=== PATIENT | female | born 1995 | race Caucasian/White ===

== ENCOUNTER 2019-05-29 18:25 | Emergency (ER) | payer BC ==
[2019-05-29] MEDS ORDERED: ACT CHARCOAL/SORB 50 GM/240ML ONE (19:16)
[2019-05-29] MEDS ORDERED: NA CHLORIDE 0.9% 1,000 ML ONE (19:16)
[2019-05-29 19:42] LABS: Absolute Lymphocytes (CBC) 2.3 K/uL (0.7-4.9); Basophils % 0.8 % (0-1.3); Hematocrit 39.6 % (36.0-45.0); Lymphocytes % 31.9 % (15.3-44.8); MPV 9.3 fL (7.6-11.3); RBC Red Blood Cell Count 4.27 M/uL (3.86-4.86)
[2019-05-29 19:48] LABS: Protime INR 1.04
[2019-05-29 19:59] LABS: ALT/SGPT 22 U/L (12-78); AST/SGOT 16 U/L (15-37); Albumin 4.4 g/dL (3.4-5.0); Alkaline Phosphatase 59 U/L (45-117); BUN Blood Urea Nitrogen 12 mg/dL (7-18); Bicarbonate 27 mmol/L (21-32); Bilirubin Direct 0.1 mg/dL (0-0.2); Bilirubin Total 0.4 mg/dL (0.2-1.0); Glucose Level 100 mg/dL (74-106); Potassium 3.6 mmol/L (3.5-5.1); Protein, Total 8.1 g/dL (6.4-8.2); Sodium Level 141 mmol/L (136-145)
[2019-05-29] MEDS ORDERED: ONDANSETRON 4 MG/2 ML VIAL ONE (20:25)
[2019-05-29 20:45] LABS: Urine Blood TRACE (NEG); Urine Glucose NEGATIVE (NEG); Urine Protein NEGATIVE (NEG); Urine Specific Gravity 1.015 (1.005-1.030)
[2019-05-29 20:49] LABS: Barbiturates NEGATIVE (NEGATIVE); Benzodiazepines NEGATIVE (NEGATIVE); Cocaine NEGATIVE (NEGATIVE); METHAMPHETAM NEGATIVE (NEGATIVE); Methadone NEGATIVE (NEGATIVE); Opiates NEGATIVE (NEGATIVE); Phencyclidine NEGATIVE (NEGATIVE); THC Cannibis NEGATIVE (NEGATIVE)
--- NOTE | 2019-05-30 04:45 | EDPHYS ---
Physician Documentation [facility] Name: Akua Richard Age: 24 yrs Sex: Female : 1995 Arrival Date: 05/29/2019 Time: 18:37 Bed 6 Private MD: ED Physician Austin Sharma HPI: 05/29 19:06 This 24 yrs old Female presents to ER via EMS with complaints of Suicidal pm1 Ideation. 19:06 The patient presents to the emergency department with a history of a suicide gesture, pm1 where the patient took pills/medications, 6-8 pills of Nyquil. Onset: The symptoms/episode began/occurred ingestion of medications 30-60 minutes prior to arrival. Past psychiatric history: Prior diagnosis: no previous psychiatric diagnosis known, Psychiatric medications include: none, the patient has not had a prior suicide gesture, the patient does not have a previous inpatient psychiatric history. Associated signs and symptoms: Pertinent positives; suicide ideation, Pertinent negatives: delusions, fever, homicidal ideation, substance abuse. Severity of symptoms: Pain is currently a 0 / 10. The patient has not experienced similar symptoms in the past. The patient has not recently seen a physician. Patient texted her family that she overdosed on Nyquil. Patient took medications due to relationship problems with her boyfriend. Historical: - Allergies: 18:44 No Known Allergies; em - Home Meds: 18:44 None [Active]; em - PMHx: 18:44 None; em - PSHx: 18:44 None; em - Immunization history:: Adult Immunizations up to date. - Social history:: Smoking status: unknown. - Ebola Screening: : Patient negative for fever greater than or equal to 101.5 degrees Fahrenheit, and additional compatible Ebola Virus Disease symptoms Patient denies exposure to infectious person Patient denies travel to an Ebola-affected area in the 21 days before illness onset No symptoms or risks identified at this time. ROS: 19:06 Unable to obtain ROS due to patient being uncooperative. pm1 20:18 Constitutional: Negative for fever, chills, and weight loss, Eyes: Negative for injury, pm1 pain, redness, and discharge, ENT: Negative for injury, pain, and discharge, Neck: Negative for injury, pain, and swelling, Cardiovascular: Negative for chest pain, palpitations, and edema, Respiratory: Negative for shortness of breath, cough, wheezing, and pleuritic chest pain. 20:18 Back: Negative for injury and pain, : Negative for injury, bleeding, discharge, and swelling, MS/Extremity: Negative for injury and deformity, Skin: Negative for injury, rash, and discoloration, Neuro: Negative for headache, weakness, numbness, tingling, and seizure. 20:18 Abdomen/GI: Positive for nausea, Negative for vomiting, diarrhea, constipation. Exam: 20:18 Constitutional: This is a well developed, well nourished patient who is awake, alert, pm1 and in no acute distress. Head/Face: Normocephalic, atraumatic. Eyes: Pupils equal round and reactive to light, extra-ocular motions intact. Lids and lashes normal. Conjunctiva and sclera are non-icteric and not injected. Cornea within normal limits. Periorbital areas with no swelling, redness, or edema. ENT: Nares patent. No nasal discharge, no septal abnormalities noted. Tympanic membranes are normal and external auditory canals are clear. Oropharynx with no redness, swelling, or masses, exudates, or evidence of obstruction, uvula midline. Mucous membranes moist. Neck: Trachea midline, no thyromegaly or masses palpated, and no cervical lymphadenopathy. Supple, full range of motion without nuchal rigidity, or vertebral point tenderness. No Meningismus. Chest/axilla: Normal chest wall appearance and motion. Nontender with no deformity. No lesions are appreciated. Cardiovascular: Regular rate and rhythm with a normal S1 and S2. No gallops, murmurs, or rubs. Normal PMI, no JVD. No pulse deficits. Respiratory: Lungs have equal breath sounds bilaterally, clear to auscultation and percussion. No rales, rhonchi or wheezes noted. No increased work of breathing, no retractions or nasal flaring. Abdomen/GI: Soft, non-tender, with normal bowel sounds. No distension or tympany. No guarding or rebound. No evidence of tenderness throughout. Back: No spinal tenderness. No costovertebral tenderness. Full range of motion. Skin: Warm, dry with normal turgor. Normal color with no rashes, no lesions, and no evidence of cellulitis. MS/ Extremity: Pulses equal, no cyanosis. Neurovascular intact. Full, normal range of motion. 20:18 Neuro: Orientation: is normal, Mentation: is normal, Motor: is normal, moves all fours. Vital Signs: 18:44 BP 120 / 79; Pulse 77; Resp 16; Temp 98.9; Pulse Ox 99% on R/A; em 19:53 BP 119 / 79; Pulse 84; Resp 17; Temp 98.5; Pulse Ox 88% ; Pain 5/10; cm6 23:49 BP 100 / 62; Pulse 74; Resp 18; Temp 97.7; Pulse Ox 97% on R/A; ea 05/30 04:00 BP 107 / 76; Pulse 87; Resp 18; Temp 97.8; Pulse Ox 98% on R/A; ea MDM: 05/29 18:38 Patient medically screened. pm1 20:18 Data reviewed: vital signs. Data interpreted: Pulse oximetry: on room air is 99 %. pm1 Interpretation: normal. 05/30 04:42 Data reviewed: lab test result(s), EKG. pkl 05/29 18:44 Order name: Acetaminophen; Complete Time: 20:17 pm1 05/29 18:44 Order name: Basic Metabolic Panel; Complete Time: 20:17 pm1 05/29 18:44 Order name: CBC with Diff; Complete Time: 19:57 pm1 05/29 18:44 Order name: ETOH Level; Complete Time: 20:17 pm05/29 18:44 Order name: Hepatic Function; Complete Time: 20:17 pm1 05/29 18:44 Order name: PT-INR; Complete Time: 19:57 pm1 05/29 18:44 Order name: Ptt, Activated; Complete Time: 19:57 pm1 05/29 18:44 Order name: Salicylate; Complete Time: 19:57 pm1 05/29 18:44 Order name: Urine Drug Screen; Complete Time: 20:54 pm1 05/29 20:39 Order name: Urine Dipstick--Ancillary (enter results); Complete Time: 20:54 05/29 20:39 Order name: Urine --Ancillary (enter results); Complete Time: 20:54 05/29 21:24 Order name: Tylenol Level: Draw at 2300; Complete Time: 22:19 pm1 05/29 18:44 Order name: Urine Test (obtain specimen); Complete Time: 21:21 pm1 05/29 18:44 Order name: EKG; Complete Time: 18:44 pm1 05/29 18:44 Order name: EKG - Nurse/Tech; Complete Time: 21:21 pm1 05/29 18:44 Order name: IV Saline Lock; Complete Time: 19:17 pm1 05/29 18:44 Order name: Labs collected and sent; Complete Time: 19:17 pm1 05/29 18:44 Order name: Urine Dipstick-Ancillary (obtain specimen); Complete Time: 21:21 pm1 Administered Medications: 05/29 19:17 Drug: NS 0.9% 1000 ml Route: IV; Rate: 1000 ml; Site: right antecubital; em 05/30 05:38 Follow up: Response: No adverse reaction; IV Status: Completed infusion; IV Intake: ea 1000ml 05/29 19:46 Drug: Charcoal Suspension 50 grams Route: PO; dm5 20:00 Follow up: Response: No adverse reaction ea 20:26 Drug: Zofran 4 mg Route: IVP; Site: right antecubital; ea 21:00 Follow up: Response: No adverse reaction; Nausea is decreased ea Disposition: 05/30 04:44 Co-signature as Attending Physician, Austin Sharma MD. pkl Disposition: 05/30/19 04:44 Transfer ordered to Psych Facility. Diagnosis is Suicidal ideation. - Reason for transfer: Higher level of care. - Accepting physician is Dr. Wasserman. - Condition is Stable. - Problem is new. - Symptoms are unchanged. Signatures: Dispatcher [employer] Hiral Masters, RN RN dm5 Austin Sharma MD MD pkl Sreedhar Allred RN RN em Michael Baca, STATISTICAL PROGRAMMER ANALYST STATISTICAL PROGRAMMER ANALYST pm1 Jaymie Roman RN RN ea Corrections: (The following items were deleted from the chart) 08:28 04:44 05/30/2019 04:44 Transfer ordered to Psych Facility. Diagnosis is Suicidal em ideation. Reason for transfer: Higher level of care. Accepting physician is Dr. Wasserman. Condition is Stable. Problem is new. Symptoms are unchanged. pkl
--- NOTE | 2019-05-30 04:45 | ER ---
Nurse's Notes [facility] Name: Akua Richard Age: 24 yrs Sex: Female : 1995 Arrival Date: 05/29/2019 Time: 18:37 Bed 6 Private MD: Diagnosis: Suicidal ideation Presentation: 05/29 18:38 Presenting complaint: EMS states: called out for overdose, family reports they received em a text from daughter stating she overdosed on nyquil, family found 6-8 missing liquid capsules missing from package, pt is drowsy and awake, no history of SI. Transition of care: patient was not received from another setting of care. Onset of symptoms was May 29, 2019. Risk Assessment: Do you want to hurt yourself or someone else? Patient reports desire/thoughts of hurting themselves or someone else. Provider notified. Initial Sepsis Screen: Does the patient meet any 2 criteria? No. Patient's initial sepsis screen is negative. Does the patient have a suspected source of infection? No. Patient's initial sepsis screen is negative. Care prior to arrival: None. 18:38 Method Of Arrival: EMS: [facility] em 18:38 Acuity: LEFTY 2 em Historical: - Allergies: 18:44 No Known Allergies; em - Home Meds: 18:44 None [Active]; em - PMHx: 18:44 None; em - PSHx: 18:44 None; em - Immunization history:: Adult Immunizations up to date. - Social history:: Smoking status: unknown. - Ebola Screening: : Patient negative for fever greater than or equal to 101.5 degrees Fahrenheit, and additional compatible Ebola Virus Disease symptoms Patient denies exposure to infectious person Patient denies travel to an Ebola-affected area in the 21 days before illness onset No symptoms or risks identified at this time. Screenin:51 Abuse screen: Denies threats or abuse. Nutritional screening: No deficits noted. em Tuberculosis screening: No symptoms or risk factors identified. Fall Risk None identified. Assessment: 18:40 General: Appears in no apparent distress. comfortable, slender, Behavior is em cooperative, drowsy. Pain: Denies pain. Neuro: Level of Consciousness is awake, alert, obeys commands. Cardiovascular: Capillary refill < 3 seconds Patient's skin is warm and dry. Respiratory: Airway is patent Respiratory effort is even, shallow. Derm: Skin is intact, is healthy with good turgor, Skin is pink, warm \T\ dry. Musculoskeletal: Capillary refill < 3 seconds, Range of motion: intact in all extremities. 18:48 Reassessment: spoke with Juana at [facility] center, recommends 50 G activated em charcoal if pt can tolerate, standard toxic workup, monitor 4-6 hours, draw post acetaminophen level after 4 hours, . 18:55 Reassessment: Pt's belongings: 1 shirt, 1 pants given to pt's sister Fatou Mlies. em See pt's chart for belongings check list. Witnessed by Eve Guerra RN. . 19:35 General: Appears in no apparent distress. Behavior is calm, cooperative. Pain: Denies ea pain. Neuro: Level of Consciousness is awake, alert, obeys commands. Cardiovascular: Patient's skin is warm and dry. Respiratory: Airway is patent Respiratory effort is even. Derm: Skin is pink, warm \T\ dry. Musculoskeletal: Circulation, motion, and sensation intact. 20:30 Reassessment: Patient and/or family updated on plan of care and expected duration. Pain ea level reassessed. Patient is alert, oriented x 3, equal unlabored respirations, skin warm/dry/pink. Sitter at bedside. 23:56 Reassessment: Pt resting with eyes closed, respirations even and unlabored, chest ea expansions even and symmetrical. No s/s of pain or discomfort noted at this time. 05/30 00:57 Reassessment: Patient and/or family updated on plan of care and expected duration. Pain ea level reassessed. Patient is alert, oriented x 3, equal unlabored respirations, skin warm/dry/pink. Pt resting with eyes closed, respirations even and unlabored. Sitter at bedside. 05:37 Reassessment: Patient and/or family updated on plan of care and expected duration. Pain ea level reassessed. Patient is alert, oriented x 3, equal unlabored respirations, skin warm/dry/pink. Acceptance received for [facility]. 08:28 Reassessment: report given to [facility]. em Vital Signs: 05/29 18:44 BP 120 / 79; Pulse 77; Resp 16; Temp 98.9; Pulse Ox 99% on R/A; em 19:53 BP 119 / 79; Pulse 84; Resp 17; Temp 98.5; Pulse Ox 88% ; Pain 5/10; cm6 23:49 BP 100 / 62; Pulse 74; Resp 18; Temp 97.7; Pulse Ox 97% on R/A; ea 05/30 04:00 BP 107 / 76; Pulse 87; Resp 18; Temp 97.8; Pulse Ox 98% on R/A; ea ED Course: 05/29 18:37 Patient arrived in ED. jl7 18:38 Michael Baca NP is PHCP. pm1 18:38 Shaan Wilkins MD is Attending Physician. pm1 18:38 Seredhar Allred, TAYA is Primary Nurse. em 18:38 Maintain EMS IV. Dressing intact. Good blood return noted. Site clean \T\ dry. Gauge \T\ em site: 20 RAC. 18:43 Triage completed. em 18:44 Arm band placed on. em 18:51 Patient has correct armband on for positive identification. Placed in gown. Bed in low em position. Call light in reach. Adult w/ patient. Pulse ox on. NIBP on. 22:42 PHCP role handed off by Michael Baca NP [facility] 22:42 Gaetano Machado PA is PHCP. [facility] 05/30 04:41 Attending Physician role handed off by Shaan Wilkins MD pkl 04:41 Austin Sharma MD is Attending Physician. pkl 05:37 No provider procedures requiring assistance completed. ea 08:28 IV discontinued, intact, bleeding controlled, No redness/swelling at site. Pressure em dressing applied. Administered Medications: 05/29 19:17 Drug: NS 0.9% 1000 ml Route: IV; Rate: 1000 ml; Site: right antecubital; em 05/30 05:38 Follow up: Response: No adverse reaction; IV Status: Completed infusion; IV Intake: ea 1000ml 05/29 19:46 Drug: Charcoal Suspension 50 grams Route: PO; dm5 20:00 Follow up: Response: No adverse reaction ea 20:26 Drug: Zofran 4 mg Route: IVP; Site: right antecubital; ea 21:00 Follow up: Response: No adverse reaction; Nausea is decreased ea Intake: 05/30 05:38 IV: 1000ml; Total: 1000ml. ea Outcome: 04:44 ER care complete, transfer ordered by . pkmaicol 08:27 Transferred by ground EMS to other acute care facility: [facility]. Transfer em form completed. 08:27 Condition: good 08:27 Instructed on the need for transfer, Demonstrated understanding of instructions. 08:28 Patient left the ED. em Signatures: Hiral Moncada, RN RN dm5 Austin Sharma MD MD pkGaetano Choi PA PA jmm Munoz, Edgar, RN RN Michael Woodard, BOARD MIXER TENDER BOARD MIXER TENDER pm1 Ricco Ware RN RN jl7 Jaymie Roman RN Danitza Lockhart ea cm6
[2019-05-30 09:12] VITALS: BP 107/76; TEMP 97.8; O2SAT 98
--- NOTE | 2019-05-31 14:03 | EKG ---
Test Date: 2019-05-29 Test Time: 19:29:14 Tax Manager Public: KEVAN MEASUREMENT RESULTS: Intervals: Rate: 83 TX: 104 QRSD: 68 QT: 362 QTc: 425 [place]: P: 51 TX: 104 QRS: 146 T: 122 INTERPRETIVE STATEMENTS: Undetermined rhythm Lateral infarct, age undetermined Abnormal ECG No previous ECG available for comparison Electronically Signed On 05-31-19 13:59:29 MANAGER CONSUMER INSIGHTS by Sotero Joya
== END 2019-05-30 08:28 ==
LOC: ER 18:25
DX: T50.992A Poisoning by other drugs, medicaments and biological substances, intentional self-harm, initial encounter (principal); Y92.9 Unspecified place or not applicable
CPT/HCPCS: 96361; 93005; 85025; 80048; 36415; 80320; 80329 ×3; 81025; 85610; 80076; 80307 ×8; 85730; 81003; 96374; 99285; J7030; J2405

== ENCOUNTER → 2023-06-25 | Emergency (ER) | payer BC, SELFPAY ==
[~2023-06-25] MED LIST: NA CHLORIDE 0.9% 1,000 ML ONE; POTASSIUM CL SA 10 MEQ TAB PO ONE; PROMETHAZINE INJ 25 MG/ML AMP ONE
--- OUTSIDE RECORDS SUMMARY | 2023-06-25 14:42 | XMS REPORT | Continuity of Care Document ---
Author Name Unknown Address [address] [place] [address] [facility] Address [address] [place] [address] Care Team Providers Care Roller Varnisher Name Role Phone Pcp, Patient Does Not Have A Primary Care Physic dinah [email or web address] Attending Clinician Unavaila francheska Doctor Unassigned, [place] Attending Clinician U navailable DEEDEE BRADFORD Attending Clinician UnavailSugar Rosa Attending Clinician [phone] Deedee Hamm Attending Clinician [phone] DIDIER JUNIOR Attending Clinician Unavailable Lab, Adc Fam Pob I Attending Clinician Didier Akhtar Attending Clinician [phone] [email or web address] Admitting Clinician Angel pritchard Payers Payer Name Policy Type Policy Number Effective Date Expirati on Date Source Problems Condition Name Condition Details Condition Category Status Onset Date Resolution Date Last Treatment Date Treating Clinician Comments Source No known active problems No known active problems Disease [facility] Allergies, Adverse Reactions, Alerts Allergy Name Allergy Type Status Severity Reaction(s) Onset Date Inactive Date Treating Clinician Comments Source NO KNOWN ALLERGIE S Drug Class Active [facility] Social History Social Habit Start Date Stop Date Quantity Comments Source Exposure to SARS-CoV-2 (event) 2022-02-08 00:00:00 2022-02-18 12:36:00 Not sure [facility] Tobacco use and exposure 2022-02-18 00:00:00 2022-02-18 00:00:00 Smokeless tobacco non-user [facility] Sex Assigned At 1995 00:00:00 1995 00:00:00 [facility] Smoking Status Start Date Stop Date Source Unknown if ever smoked [facility] Never smoked tobacco [facility] acute [facility] Medications Ordered Medication Name Filled Medication Name Start Date Stop Date Current Medication? Ordering Clinician Indication Dosage Frequency Signature (SIG) Comments Components Source No known medications 2021-05 12:40: 01 No No known medication s [facility] acute hospital No known medications 2021-05 12:40: 01 No No known medication [facility] Vital Signs Vital Name Observation Time Observation Value Comments S ource Systolic blood pressure 2022-02-18 17:39:00 130 mm[Hg] [facility] Diastolic blood pressure 2022-02-18 17:39:00 90 mm[Hg] [facility] Heart rate 2022-02-18 17:37:00 122 /min [facility] Body temperature 2022-02-18 17:37:00 36.94 Dorita [facility] Respiratory rate 2022-02-18 17:37:00 18 /min [facility] Body height 2022-02-18 17:37:00 149.9 cm [facility] Body weight 2022-02-18 17:37:00 47.174 kg [facility] BMI 2022-02-18 17:37:00 21.01 kg/m2 [facility] Oxygen saturation in Arterial blood by Pulse oximetry 2022-02-18 17:37:00 99 /min [facility] Procedures Procedure Date / Time Performed Performing Clinicia n Source [facility] PATIENT FINANCIAL POLICY 2022-03-08 05:01:00 Doctor Unassigned, [place] [facility] POCT MOLECULAR STREP 2022-02-18 17:38:00 Farideh Bradford [facility] Encounters Start Date/Time End Date/Time Encounter Type Admission Type Attending Clinicians Care Facility Care Department Encounter ID Source 2023-03-09 00:00:00 2023-03-09 00:00:00 Outpatient [email or web address]_S [facility] [id number] [facility] 2022-03-08 00:00:00 2022-03-08 00:00:00 Orders Only Doctor Unassigned, [place] [facility] [id number] General acute hospital 2022-02-18 12:40:00 2022-02-18 13:03:46 Outpatient R DEEDEE BRADFORD [facility] [id number] General acute hospital 2022-02-18 12:40:00 2022-02-18 13:00:00 Urgent Care Sugar Arellano Kimberly J [facility] [id number] [id number] General acute hospital 2019-12-04 13:20:00 2019-12-04 13:20:00 Outpatient R DIDIER JUNIOR [facility] [id number] General acute hospital 2019-12-04 12:57:18 2019-12-04 13:17:18 Laboratory Only Lab, [id number] .[id number] General acute hospital 2019-12-04 00:00:00 2019-12-04 00:00:00 Letter (Out) Doctor Unassigned, [place] [facility] 1.0.114 [id number] General acute hospital 2019-12-04 00:00:00 2019-12-04 00:00:00 Letter (Out) Doctor Unassigned, [place] [facility] [id number] General acute hospital 2019-12-04 00:00:00 2019-12-04 00:00:00 Letter (Out) Doctor Unassigned, [place] [facility] [id number] [id number] [id number] General acute hospital Results Test Description Test Time Test Comments Results Result Co mments Source [facility]
[2023-06-25 15:08] LABS: Absolute Lymphocytes (CBC) 2.2 K/uL (0.7-4.9); Hematocrit 43.4 % (36.0-45.0); Lymphocytes % 19.3 % (15.3-44.8); MCV 90.5 fL (80-100); MPV 8.7 fL (7.6-11.3); Platelets 275 thou/uL (152-406); RBC Red Blood Cell Count 4.79 M/uL (3.86-4.86)
[2023-06-25 15:49] LABS: Specific Gravity > 1.030 (1.005-1.030); Urine Bacteria <20 /HPF (<20); Urine Bilirubin NEGATIVE (Negative); Urine Blood 2+ (Negative); Urine Clarity Extremely Turbid (Clear); Urine Color Yellow (Yellow); Urine Crystals Unidentified Few /HPF (None Seen); Urine Glucose NEGATIVE (Negative); Urine Mucus 2+ /HPF (None Seen); Urine Protein 1+ (Negative); Urine Urobilinogen 1+ (Normal)
[2023-06-25 15:51] LABS: Albumin 4.4 g/dL (3.4-5.0); Bilirubin Total 0.6 mg/dL (0.2-1.0); Potassium 3.1 mEq/L (3.5-5.1); Protein, Total 8.6 g/dL (6.4-8.2)
--- NOTE | 2023-06-25 16:55 | ER ---
Nurse's Notes [facility] Name: Akua Richard Age: 28 yrs Sex: Female : 1995 Arrival Date: 06/25/2023 Time: 14:39 Bed 6 Private MD: Diagnosis: Nausea with vomiting, unspecified;Less than 8 weeks gestation of Presentation: 06/25 14:45 Risk Assessment: Do you want to hurt yourself or someone else? Patient reports no mb9 desire to harm self or others. 14:47 Chief complaint: Patient states: Nausea and vomiting x 4 days, denies abdominal pain or ph fever, 7 weeks w/ first . Coronavirus screen: Vaccine status: Patient reports being unvaccinated. Ebola Screen: No symptoms or risks identified at this time. Initial Sepsis Screen: Does the patient meet any 2 criteria? No. Patient's initial sepsis screen is negative. Does the patient have a suspected source of infection? No. Patient's initial sepsis screen is negative. Onset of symptoms was June 25, 2023. 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 - Social history:: Smoking status: Patient denies any tobacco usage or history of. Screenin:44 [facility] ED Fall Risk Assessment (Adult) History of falling in the last 3 months, mb9 including since admission No falls in past 3 months (0 pts) Confusion or Disorientation No (0 pts) Intoxicated or Sedated No (0 pts) Impaired Gait No (0 pts) Mobility Assist Device Used No (0 pt) Altered Elimination No (0 pt) Score/Fall Risk Level 0 - 2 = Low Risk Oriented to surroundings, Maintained a safe environment, Educated pt \T\ family on fall prevention, incl call for assistance when getting out of bed. Abuse screen: Denies threats or abuse. Nutritional screening: No deficits noted. Tuberculosis screening: No symptoms or risk factors identified. Assessment: 14:54 General: Appears in no apparent distress. Behavior is calm, cooperative. Pain: Denies mb9 pain. Neuro: Berry Agitation-Sedation Scale (RASS): 0 - Alert and Calm Level of Consciousness is awake, alert, obeys commands, Oriented to person, place, time, situation, Appropriate for age. Cardiovascular: Heart tones S1 S2 present Patient's skin is warm and dry. Rhythm is sinus tachycardia. Respiratory: Airway is patent Respiratory effort is even, unlabored, Respiratory pattern is regular, symmetrical, Breath sounds are clear bilaterally. GI: Abdomen is flat, non-distended, Bowel sounds present X 4 quads. Abd is soft and non tender X 4 quads. Reports nausea, vomiting. : No signs and/or symptoms were reported regarding the genitourinary system. EENT: No signs and/or symptoms were reported regarding the EENT system. Derm: Skin is pink, warm \T\ dry. Musculoskeletal: Range of motion: intact in all extremities. 15:37 Reassessment: Patient and/or family updated on plan of care and expected duration. Pain mb9 level reassessed. Patient is alert, oriented x 3, equal unlabored respirations, skin warm/dry/pink. Patient states feeling better. Patient states symptoms have improved. 16:48 Reassessment: No changes from previously documented assessment. Patient and/or family mb9 updated on plan of care and expected duration. Pain level reassessed. Patient is alert, oriented x 3, equal unlabored respirations, skin warm/dry/pink. 17:01 Reassessment: Patient and/or family updated on plan of care and expected duration. Pain mb9 level reassessed. Patient is alert, oriented x 3, equal unlabored respirations, skin warm/dry/pink. Patient states feeling better. Patient states symptoms have improved. Vital Signs: 14:47 BP 129 / 100; Pulse 124; Resp 18; Temp 97.9; Pulse Ox 100% on R/A; Weight 50.8 kg; ph Height 4 ft. 11 in. ; 15:03 BP 105 / 72; Pulse 81; Resp 16; Pulse Ox 100% on R/A; mb9 15:40 BP 115 / 71; Pulse 64; Resp 16; Pulse Ox 100% on R/A; mb9 16:47 BP 110 / 72; Pulse 75; Resp 16; Pulse Ox 100% on R/A; mb9 14:47 Body Mass Index 22.62 (50.80 kg, 149.86 cm) ph ED Course: 14:42 Patient arrived in ED. ph 14:43 Farzaneh Calvin [facility]-C [facility] kb 14:43 Julius Sandhu DO is Attending Physician. kb 14:44 Juana Chilel RN is Primary Nurse. mb9 14:44 Arm band placed on. mb9 14:44 Placed in gown. Bed in low position. Call light in reach. Side rails up X 1. Client mb9 placed on continuous cardiac and pulse oximetry monitoring. NIBP monitoring applied. 14:45 Inserted saline lock: 20 gauge in right antecubital area, using aseptic technique. mb9 Blood collected. 14:49 Triage completed. ph 14:51 CBC with Diff Sent. mb9 14:51 Quantitative Hcg Sent. mb9 14:55 No provider procedures requiring assistance completed. mb9 15:37 Test, Urine Sent. mb9 15:37 Urinalysis w/ reflexes Sent. mb9 17:01 IV discontinued, intact, bleeding controlled, No redness/swelling at site. Pressure mb9 dressing applied. 17:02 Primary Nurse role handed off by Juana Chilel, TAYA ph Administered Medications: 14:51 Drug: NS 0.9% IV 1000 ml IV at 1000 ml once Route: IV; Rate: 1000 ml; Site: right mb9 antecubital; 15:55 Follow up: Response: No adverse reaction; IV Status: Completed infusion mb9 14:53 Drug: Promethazine IVP 12.5 mg IVP once Route: IVP; Site: right antecubital; ko1 15:12 Follow up: Response: No adverse reaction mb9 15:59 Drug: NS 0.9% IV 1000 ml IV at 100 ml/hr once Route: IV; Rate: 100 ml/hr; Site: right mb9 antecubital; 17:01 Follow up: Response: No adverse reaction; IV Status: Completed infusion mb9 15:59 Drug: Potassium Chloride PO 40 mEq PO once Route: PO; mb9 16:48 Follow up: Response: No adverse reaction mb9 Medication: 14:45 VIS not applicable for this client. mb9 Outcome: 16:55 Discharge ordered by . kb 17:01 Discharged to home ambulatory, with family, mb9 17:01 Condition: stable 17:01 Discharge instructions given to patient, Instructed on discharge instructions, follow up and referral plans. Demonstrated understanding of instructions, follow-up care, 17:02 Patient left the ED. mb9 17:03 Patient left the ED. ph Signatures: Farzaneh Calvin, MARTINEZ PITTS-Sahara Wells RN RN ph Brooklyn Forte, RN RN ko1 Juana Chilel RN RN mb9
--- NOTE | 2023-06-25 16:55 | EDPHYS ---
Physician Documentation [facility] Name: Akua Richard Age: 28 yrs Sex: Female : 1995 Arrival Date: 06/25/2023 Time: 14:39 Bed 6 Private MD: ED Physician Julius Sandhu HPI: 06/25 15:05 This 28 yrs old Female presents to ER via Ambulatory with complaints of 7 WEEKS PREG, kb Nausea/Vomiting. 15:05 Pt is a 28 year old female who is 7 weeks presenting with nausea and vomiting kb for one week. States symptoms got worse 4 days ago and she hasn't been able to tolerate anything by mouth. Denies abd pain, diarrhea, fever, vaginal bleeding/discharge. A0. 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 - Social history:: Smoking status: Patient denies any tobacco usage or history of. ROS: 14:56 Constitutional: Negative for fever, chills, and weight loss, kb 14:56 Abdomen/GI: Positive for nausea and vomiting, Negative for abdominal pain, 14:56 All other systems are negative, Exam: 14:56 Constitutional: This is a well developed, well nourished patient who is awake, alert, kb and in no acute distress. Head/Face: Normocephalic, atraumatic. ENT: Moist Mucous membranes Cardiovascular: Tachycardic rate Respiratory: Respirations even and unlabored. No increased work of breathing. Talking in full sentences Abdomen/GI: Soft, non-tender. No distention Skin: Warm, dry with normal turgor. Normal color. MS/ Extremity: Pulses equal, no cyanosis. Neurovascular intact. Full, normal range of motion. Neuro: Awake and alert, GCS 15, oriented to person, place, time, and situation. Moves all extremities. Normal gait. Vital Signs: 14:47 BP 129 / 100; Pulse 124; Resp 18; Temp 97.9; Pulse Ox 100% on R/A; Weight 50.8 kg; ph Height 4 ft. 11 in. ; 15:03 BP 105 / 72; Pulse 81; Resp 16; Pulse Ox 100% on R/A; mb9 15:40 BP 115 / 71; Pulse 64; Resp 16; Pulse Ox 100% on R/A; mb9 16:47 BP 110 / 72; Pulse 75; Resp 16; Pulse Ox 100% on R/A; mb9 14:47 Body Mass Index 22.62 (50.80 kg, 149.86 cm) ph MDM: 14:43 Patient medically screened. kb 15:03 Differential diagnosis: abnormal electrolytes, dehydration. Data reviewed: vital signs, kb nurses notes. 16:54 Counseling: I had a detailed discussion with the patient and/or guardian regarding the kb historical points, exam findings, and any diagnostic results supporting the discharge/admit diagnosis, lab results, the need for outpatient follow up, an OB/Gyne specialist, to return to the emergency department if symptoms worsen or persist or if there are any questions or concerns that arise at home. 06/25 14:49 Order name: CBC with Diff; Complete Time: 15:16 kb 06/25 14:49 Order name: Test, Urine; Complete Time: 15:54 kb 06/25 14:49 Order name: Quantitative Hcg; Complete Time: 15:54 kb 06/25 14:49 Order name: Urinalysis w/ reflexes; Complete Time: 15:54 kb 06/25 14:49 Order name: CMP; Complete Time: 15:54 kb 06/25 14:49 Order name: IV Saline Lock; Complete Time: 14:51 kb 06/25 14:49 Order name: Labs collected and sent; Complete Time: 14:51 kb 06/25 14:49 Order name: NPO; Complete Time: 14:50 kb 06/25 15:55 Order name: PO challenge; Complete Time: 15:59 kb Administered Medications: 14:51 Drug: NS 0.9% IV 1000 ml IV at 1000 ml once Route: IV; Rate: 1000 ml; Site: right mb9 antecubital; 15:55 Follow up: Response: No adverse reaction; IV Status: Completed infusion mb9 14:53 Drug: Promethazine IVP 12.5 mg IVP once Route: IVP; Site: right antecubital; ko1 15:12 Follow up: Response: No adverse reaction mb9 15:59 Drug: NS 0.9% IV 1000 ml IV at 100 ml/hr once Route: IV; Rate: 100 ml/hr; Site: right mb9 antecubital; 17:01 Follow up: Response: No adverse reaction; IV Status: Completed infusion mb9 15:59 Drug: Potassium Chloride PO 40 mEq PO once Route: PO; mb9 16:48 Follow up: Response: No adverse reaction mb9 Disposition: 15:44 I was immediately available on-site in the Emergency Department for consultation in the ms3 care of the patient. Disposition Summary: 06/25/23 16:55 Discharge Ordered Notes: Location: Home kb Condition: Stable kb Diagnosis - Nausea with vomiting, unspecified kb - Less than 8 weeks gestation of kb Followup: kb - With: Private Physician - When: 2 - 3 days - Reason: Recheck today's complaints, Continuance of care, Re-evaluation by your physician Followup: kb - With: Emergency Department - When: As needed - Reason: Worsening of condition Discharge Instructions: - Discharge Summary Sheet kb - Morning Sickness, Dlzh-ze-Hwgo kb - First Trimester of , Nygh-hz-Gwac kb Forms: - Medication Reconciliation Form kb - Thank You Letter kb - Antibiotic Education kb - Prescription Opioid Use kb - Patient Portal Instructions kb - Leadership Thank You Letter kb - Work release form ph Signatures: Dispatcher [employer] EDFarzaneh Minor, MATERIAL CLERK-C MATERIAL CLERK-Sahara Wells, RN RN Julius Lloyd DO DO ms3 Brooklyn Forte, RN RN ko1 Juana Chilel, RN RN mb9
[2023-06-25 17:25] VITALS: BP 110/72; TEMP 97.9; O2SAT 100
== END ==
LOC: ER 14:39
DX: O21.9 Vomiting of pregnancy, unspecified (principal); Z3A.01 Less than 8 weeks gestation of pregnancy
CPT/HCPCS: 36415; 80053; 81001; 81025; 84702; 85025; J2550; J7030

== ENCOUNTER → 2023-07-09 | Emergency (ER) | payer SELFPAY ==
[~2023-07-09] MED LIST changes: +D5LR 1,000 ML IV ONE; +NA CHLORIDE 0.9% 50 ML ONE; -POTASSIUM CL SA 10 MEQ TAB PO ONE
--- OUTSIDE RECORDS SUMMARY | 2023-07-09 11:27 | XMS REPORT | Continuity of Care Document ---
Author Name Unknown Address [address] [place] [address] [facility] thconnect Address [address] [place] [address] Care Team Providers Care Plan Nurse Name Role Phone Pcp, Patient Does Not Have A Primary Care Physic dinah [email or web address] Attending Clinician Unavaila francheska Doctor Unassigned, [place] Attending Clinician U navailable DEEDEE BRADFORD Attending Clinician UnavailSugar Rosa Attending Clinician Deedee Hamm Attending Clinician [phone] DIDIER JUNIOR Attending Clinician Unavailable Lab, Adc Fam Pob I Attending Clinician Didier Akhtar Attending Clinician [phone] [email or web address] Admitting Clinician Angel pritchard Payers Payer Name Policy Type Policy Number Effective Date Expirati on Date Source Problems Condition Name Condition Details Condition Category Status Onset Date Resolution Date Last Treatment Date Treating Clinician Comments Source No known active problems No known active problems Disease [facility] Allergies, Adverse Reactions, Alerts Allergy Name Allergy Type Status Severity Reaction(s) Onset Date Inactive Date Treating Clinician Comments Source NO KNOWN ALLERGIE S Drug Class Active [facility] Social History Social Habit Start Date Stop Date Quantity Comments Source Exposure to SARS-CoV-2 (event) 2022-02-08 00:00:00 2022-02-18 12:36:00 Not sure [facility] Tobacco use and exposure 2022-02-18 00:00:00 2022-02-18 00:00:00 Smokeless tobacco non-user [facility] Sex Assigned At 1995 00:00:00 1995 00:00:00 [facility] Smoking Status Start Date Stop Date Source Unknown if ever smoked [facility] Never smoked tobacco [facility] Medications Ordered Medication Name Filled Medication Name Start Date Stop Date Current Medication? Ordering Clinician Indication Dosage Frequency Signature (SIG) Comments Components Source No known medications 2021-05 12:40: 01 No No known medication s [facility] No known medications 2021-05 12:40: 01 No No known medication [facility] Vital Signs Vital Name Observation Time Observation Value Comments S ource Systolic blood pressure 2022-02-18 17:39:00 130 mm[Hg] [facility] Diastolic blood pressure 2022-02-18 17:39:00 90 mm[Hg] [facility] Heart rate 2022-02-18 17:37:00 122 /min [facility] Body temperature 2022-02-18 17:37:00 36.94 Dorita [facility] Respiratory rate 2022-02-18 17:37:00 18 /min [facility] Body height 2022-02-18 17:37:00 149.9 cm [facility] Body weight 2022-02-18 17:37:00 47.174 kg [facility] BMI 2022-02-18 17:37:00 21.01 kg/m2 [facility] Oxygen saturation in Arterial blood by Pulse oximetry 2022-02-18 17:37:00 99 /min [facility] Procedures Procedure Date / Time Performed Performing Clinicia n Source [facility] PATIENT FINANCIAL POLICY 2022-03-08 05:01:00 Doctor Unassigned, [place] [facility] POCT MOLECULAR STREP 2022-02-18 17:38:00 Farideh Bradford [facility] Encounters Start Date/Time End Date/Time Encounter Type Admission Type Attending Clinicians Care Facility Care Department Encounter ID Source 2023-03-09 00:00:00 2023-03-09 00:00:00 Outpatient [email or web address] [facility] [id number] [facility] 2022-03-08 00:00:00 2022-03-08 00:00:00 Orders Only Doctor Unassigned, [place] [facility] [id number] [facility] 2022-02-18 12:40:00 2022-02-18 13:03:46 Outpatient R DEEDEE BRADFORD [facility] [id number] [facility] 2022-02-18 12:40:00 2022-02-18 13:00:00 Urgent Care Sugar Arellano Kimberly J [facility] 1.840.114 [id number] [facility] 2019-12-04 13:20:00 2019-12-04 13:20:00 Outpatient R DIDIER JUNIOR [facility] [id number] [facility] 2019-12-04 12:57:18 2019-12-04 13:17:18 Laboratory Only Lab, [facility] .840.114 [id number] [facility] 2019-12-04 00:00:00 2019-12-04 00:00:00 Letter (Out) Doctor Unassigned, [place] [facility] [id number] [id number] [facility] 2019-12-04 00:00:00 2019-12-04 00:00:00 Letter (Out) Doctor Unassigned, [place] [facility] [id number] [facility] 2019-12-04 00:00:00 2019-12-04 00:00:00 Letter (Out) Doctor Unassigned, [place] [facility] [id number] [facility] Results Test Description Test Time Test Comments Results Result Co mments Source [facility]
[2023-07-09 12:17] LABS: Specific Gravity > 1.030 (1.005-1.030); Urine Bacteria <20 /HPF (<20); Urine Bilirubin NEGATIVE (Negative); Urine Blood 1+ (Negative); Urine Clarity Turbid (Clear); Urine Color Yellow (Yellow); Urine Glucose NEGATIVE (Negative); Urine Mucus 2+ /HPF (None Seen); Urine Protein 2+ (Negative); Urine RBC <5 /HPF (None Seen); Urine Urobilinogen 1+ (Normal); Urine pH 5.5 (5.0-7.0)
[2023-07-09 13:27] LABS: Potassium 3.7 mEq/L (3.5-5.1)
--- NOTE | 2023-07-09 14:35 | EDPHYS ---
Physician Documentation [facility] Name: Akua Richard Age: 28 yrs Sex: Female : 1995 Arrival Date: 07/09/2023 Time: 11:24 Bed 10 Private MD: ED Physician Michele Hilliard HPI: 07/09 13:17 This 28 yrs old Female presents to ER via Ambulatory with complaints of Preg--9wks, rn Vomiting. 13:17 The patient presents to the emergency department with nausea, vomiting. Onset: The rn symptoms/episode began/occurred 2 day(s) ago. Possible causes: . The symptoms are aggravated by food , The symptoms are alleviated by nothing. Severity of symptoms: At their worst the symptoms were moderate in the emergency department the symptoms are unchanged. The patient has experienced a previous episode. Patient reports approximately 9 weeks , G1, P0, reports moderate nausea that is keeping her from eating and drinking. No abdominal pain. No vaginal bleeding. Just had ultrasound that shows single IUP. 12 no complications. Seen here 2 weeks ago for same problem and felt better after medication and fluids. Denies fever. No cough or shortness of breath. No chest pain.. 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 - Social history:: Smoking status: Patient denies any tobacco usage or history of. - Family history:: not pertinent. - Hospitalizations: : No recent hospitalization is reported. ROS: 13:17 Constitutional: Negative for fever, chills, and weight loss, Cardiovascular: Negative rn for chest pain, palpitations, and edema, Respiratory: Negative for shortness of breath, cough, wheezing, and pleuritic chest pain, Abdomen/GI: Negative for abdominal pain, positive for nausea/vomiting MS/Extremity: Negative for injury and deformity, Skin: Negative for injury, rash, and discoloration, Neuro: Positive for generalized weakness and malaise Exam: 13:17 Constitutional: This is a well developed, well nourished patient who is awake, alert, rn and in no acute distress. Cardiovascular: Tachycardic, regular. Respiratory: No increased work of breathing, no retractions or nasal flaring. Abdomen/GI: Soft, nontender Vital Signs: 11:36 BP 115 / 97; Pulse 123; Resp 18 S; Temp 97.5(TE); Pulse Ox 98% on R/A; Weight 50.8 kg as6 (R); Height 4 ft. 11 in. (R); Pain 0/10; 13:03 BP 105 / 72; Pulse 65; Resp 16; Pulse Ox 98% on R/A; cm10 14:50 BP 106 / 67; Pulse 71; Resp 16; Pulse Ox 100% on R/A; cm10 11:36 Body Mass Index 22.62 (50.80 kg, 149.86 cm) as6 11:36 Pain Scale: Adult as6 MDM: 11:40 Patient medically screened. rn 14:33 Differential diagnosis: Hyperemesis gravidarum, dehydration, morning sickness, rn complication. Data reviewed: vital signs, nurses notes, lab test result(s), and as a result, I will discharge patient. Counseling: I had a detailed discussion with the patient and/or guardian regarding the historical points, exam findings, and any diagnostic results supporting the discharge/admit diagnosis, lab results, the need for outpatient follow up, to return to the emergency department if symptoms worsen or persist or if there are any questions or concerns that arise at home. Special discussion: I discussed with the patient/guardian in detail that at this point there is no indication for admission to the hospital. It is understood, however, that if the symptoms persist or worsen the patient needs to return immediately for re-evaluation. 07/09 11:43 Order name: Basic Metabolic Panel; Complete Time: 13:28 rn 07/09 11:43 Order name: Urinalysis w/ reflexes; Complete Time: 13:04 rn 07/09 11:43 Order name: IV Start; Complete Time: 12:08 rn 07/09 12:29 Order name: Labs - recollect needed: recollect green tube; Complete Time: 13:04 bd Administered Medications: 11:44 CANCELLED (Duplicate Order): xlcogxztutxw15.5 mg IM once rn 12:19 Drug: NS 0.9% IV 1000 ml IV at 1000 ml once Route: IV; Rate: 1000 ml; Site: right cm10 antecubital; 13:33 Follow up: Response: No adverse reaction; IV Status: Completed infusion; IV Intake: cm10 1000ml 12:19 Drug: D5-LR IV 1000 ml IV at 200 ml/hr continuous Route: IV; Rate: 200 ml/hr; Site: cm10 right antecubital; 14:49 Follow up: Response: No adverse reaction; IV Status: Completed infusion; IV Intake: cm10 300ml 12:19 Drug: Promethazine IVP 12.5 mg IVP once Route: IVP; Site: right antecubital; cm10 13:04 Follow up: Response: No adverse reaction cm10 Disposition Summary: 07/09/23 14:35 Discharge Ordered Notes: Location: Home rn Problem: new rn Symptoms: have improved rn Condition: Stable rn Diagnosis - Vomiting, unspecified rn - Mild hyperemesis gravidarum rn Followup: rn - With: Private Physician - When: As needed - Reason: Recheck today's complaints, Re-evaluation by your physician Discharge Instructions: - Discharge Summary Sheet rn - Hyperemesis Gravidarum rn - Nausea and Vomiting, Adult rn - Morning Sickness rn Forms: - Medication Reconciliation Form rn - Thank You Letter rn - Antibiotic sports marketing internship - Prescription Opioid Use rn - Patient Portal Instructions rn - Leadership Thank You Letter rn - Work release form cm10 Signatures: Dispatcher [employer] Jonelle Bermudez Roman, MD MD rn Slawson, Ashby, RN RN as6 Kellen Contreras RN RN cm10 Corrections: (The following items were deleted from the chart) 11:44 11:44 Promethazine IM 12.5 mg IM once ordered. rn rn
--- NOTE | 2023-07-09 14:35 | ER ---
Nurse's Notes [facility] Name: Akua Richard Age: 28 yrs Sex: Female : 1995 Arrival Date: 07/09/2023 Time: 11:24 Bed 10 Private MD: Diagnosis: Vomiting, unspecified;Mild hyperemesis gravidarum Presentation: 07/09 11:36 Chief complaint: Patient states: "I'm 9 weeks and I haven't been able to see as6 an OB yet and I have really bad morning sickness and I can't keep anything down. I just feel really dehydrated". Coronavirus screen: At this time, the client does not indicate any symptoms associated with coronavirus-19. Ebola Screen: No symptoms or risks identified at this time. Initial Sepsis Screen: Does the patient meet any 2 criteria? No. Patient's initial sepsis screen is negative. Does the patient have a suspected source of infection? No. Patient's initial sepsis screen is negative. Risk Assessment: Do you want to hurt yourself or someone else? Patient reports no desire to harm self or others. Onset of symptoms was July 09, 2023. 11:36 Method Of Arrival: Ambulatory as6 11:36 Acuity: LEFTY 3 as6 Triage Assessment: 11:38 General: Appears in no apparent distress. Behavior is calm, cooperative. Pain: Denies as6 pain. GI: Reports vomiting. 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 - Social history:: Smoking status: Patient denies any tobacco usage or history of. - Family history:: not pertinent. - Hospitalizations: : No recent hospitalization is reported. Screenin:05 [facility] ED Fall Risk Assessment (Adult) History of falling in the last 3 months, cm10 including since admission No falls in past 3 months (0 pts) Confusion or Disorientation No (0 pts) Intoxicated or Sedated No (0 pts) Impaired Gait No (0 pts) Mobility Assist Device Used No (0 pt) Altered Elimination No (0 pt) Score/Fall Risk Level 0 - 2 = Low Risk Oriented to surroundings, Maintained a safe environment, Hourly rounding (assess needs \\T\\ fall precautionary measures) done. Abuse screen: Denies threats or abuse. Denies injuries from another. Nutritional screening: No deficits noted. Tuberculosis screening: No symptoms or risk factors identified. Assessment: 13:04 General: Appears in no apparent distress. comfortable, Behavior is calm, cooperative. cm10 Pain: Denies pain. Neuro: No deficits noted. Level of Consciousness is awake, alert, obeys commands, Oriented to person, place, time, situation. Cardiovascular: No deficits noted. Capillary refill < 3 seconds Patient's skin is warm and dry. Respiratory: No deficits noted. Airway is patent Respiratory effort is even, unlabored, Respiratory pattern is regular, symmetrical. GI: Abdomen is non-distended, Reports nausea, vomiting. : No deficits noted. No signs and/or symptoms were reported regarding the genitourinary system. EENT: No deficits noted. No signs and/or symptoms were reported regarding the EENT system. Derm: No deficits noted. No signs and/or symptoms reported regarding the dermatologic system. Skin is intact, Skin is pink, warm \\T\\ dry. Musculoskeletal: No deficits noted. No signs and/or symptoms reported regarding the musculoskeletal system. Range of motion: intact in all extremities. 14:51 Reassessment: Patient appears in no apparent distress at this time. Patient is alert, cm10 oriented x 3, equal unlabored respirations, skin warm/dry/pink. Patient states feeling better. Patient states symptoms have improved. Vital Signs: 11:36 BP 115 / 97; Pulse 123; Resp 18 S; Temp 97.5(TE); Pulse Ox 98% on R/A; Weight 50.8 kg as6 (R); Height 4 ft. 11 in. (R); Pain 0/10; 13:03 BP 105 / 72; Pulse 65; Resp 16; Pulse Ox 98% on R/A; cm10 14:50 BP 106 / 67; Pulse 71; Resp 16; Pulse Ox 100% on R/A; cm10 11:36 Body Mass Index 22.62 (50.80 kg, 149.86 cm) as6 11:36 Pain Scale: Adult as6 ED Course: 11:28 Patient arrived in ED. mg5 11:38 Triage completed. as6 11:39 Arm band placed on. as6 11:40 Michele Hilliard MD is Attending Physician. rn 12:08 Inserted saline lock: 20 gauge in right antecubital area, using aseptic technique. as6 Blood collected. 12:08 Urinalysis w/ reflexes Sent. as6 12:08 Basic Metabolic Panel Sent. as6 12:18 Kellen Contreras, RN is Primary Nurse. cm10 13:05 Patient has correct armband on for positive identification. Bed in low position. Call cm10 light in reach. Side rails up X 1. Provided Education on: ER process and procedures. . Pulse ox on. NIBP on. 13:05 No provider procedures requiring assistance completed. Lab(s) recollected, by me, sent cm10 to lab. 14:34 Michele Hilliard MD is Referral Physician. rn 14:34 Referral Physician role handed off by Michele Hilliard MD rn 14:51 IV discontinued, intact, bleeding controlled, No redness/swelling at site. Pressure cm10 dressing applied. Administered Medications: 11:44 CANCELLED (Duplicate Order): [id number] mg IM once rn 12:19 Drug: NS 0.9% IV 1000 ml IV at 1000 ml once Route: IV; Rate: 1000 ml; Site: right cm10 antecubital; 13:33 Follow up: Response: No adverse reaction; IV Status: Completed infusion; IV Intake: cm10 1000ml 12:19 Drug: D5-LR IV 1000 ml IV at 200 ml/hr continuous Route: IV; Rate: 200 ml/hr; Site: cm10 right antecubital; 14:49 Follow up: Response: No adverse reaction; IV Status: Completed infusion; IV Intake: cm10 300ml 12:19 Drug: Promethazine IVP 12.5 mg IVP once Route: IVP; Site: right antecubital; cm10 13:04 Follow up: Response: No adverse reaction cm10 Medication: 13:05 VIS not applicable for this client. cm10 Intake: 13:33 IV: 1000ml; Total: 1000ml. cm10 14:49 IV: 300ml; Total: 1300ml. cm10 Outcome: 14:35 Discharge ordered by . rn 14:51 Discharged to home ambulatory, with significant other, cm10 14:51 Condition: good 14:51 Discharge instructions given to patient, Instructed on discharge instructions, follow up and referral plans. Demonstrated understanding of instructions, follow-up care, 14:51 Patient left the ED. cm10 Signatures: Michele Hilliard MD MD rn Slawson, Ashby, RN RN as6 Kellen Contreras RN RN cm10 Chayito Simeon 5
[2023-07-09 15:02] VITALS: BP 106/67; TEMP 97.5; O2SAT 100
== END ==
LOC: ER 11:24
DX: O21.0 Mild hyperemesis gravidarum (principal); Z3A.09 9 weeks gestation of pregnancy
CPT/HCPCS: 36415; 80048; 81001; J2550; J7030; J7121